=== PATIENT | female | born 1975 | race Caucasian/White ===

== ENCOUNTER 2017-03-24 12:46 | Day surgery (SDC) | payer BC ==
[~2017-03-24] VITALS: Ht 167.6 cm; Wt 60.3 kg
[2017-03-24] MEDS ORDERED: PRILOSEC OTC20 MG PO (13:04)
--- NOTE | 2017-03-24 14:51 | NUR ---
03/24/17 1453 Lamar Mansfield 4974-PATIENT ARRIVED TO PACU ON 2L NC O2 SAT 100% PATIENT LAYING ON LEFT LATERAL SIDE. ABDOMEN SOFT. ENCOURAGED TO PASS FLATUS.
--- NOTE | 2017-04-04 13:40 | OR ---
[facility] [address], [place] [address] Signed DATE OF PROCEDURE: 03/24/17 PREOPERATIVE DIAGNOSES Persistent left lower and left upper abdominal pain. Normal upper endoscopy. Prior left ovarian cyst. POSTOPERATIVE DIAGNOSIS: Essentially normal-appearing colon. PROCEDURE Total colonoscopy to cecum with biopsy of splenic flexure area and rectum. SURGEON: Trina Lee MD. ANESTHESIA: Intravenous sedation with Fentanyl 150 mcg, Versed 6 mg. INDICATION This 42-year-old white woman is a patient of BETTY Juarez, in [place], [place]. Since January 30 or so, she has had left-sided abdominal pain, sometimes it is in the left upper quadrant, sometimes in the left lower aspect. She notes it worsens in relation to her menstrual cycle. A CT scan of the abdomen and pelvis in August of 2016 did show a left ovarian cyst, which was small. She has undergone upper endoscopy showing no significant peptic problems. I am concerned this may represent endometriosis or perhaps episodically problematic left ovarian cyst. Colonoscopy is indicated a t this time to assess for neoplastic disease or other particular left-sided colonic problems. She understands the risks of bleeding, infection, and perforation related to colonoscopy and wished to proceed. FINDINGS The prep was excellent. Complete colonoscopy was undertaken to the cecum. The sigmoid area was somewhat tortuous and challenging to negotiate, but it was accomplished and complete colonoscopy to the cecum was accomplished. The ileocecal valve and appendiceal orifice were identified as normal. Notably, there was a fair amount of liver transilluminated in the region of the cecum, therefore, some questions exist to whether there may be incomplete rotation; however, no such finding was noted on CT scan before, and we will need to relook at that. There is no sign of diverticular formation, colitis, or cancer, however, and the rectum was normal. PROCEDURE The patient brought to the endoscopy suite and placed in lateral decubitus position and given intravenous sedation to the point of slurred speech and nystagmus. Digital rectal examination was normal. Electronically Signed By: TRINA LEE MD 04/04/17 1340 PATIENT NAME: RICK DAILEY OPERATIVE REPORT DATE OF : 75 PHYSICIAN: TRINA LEE MD REPORT #: [id number] REPORT IS CONFIDENTIAL AND NOT TO BE RELEASED WITHOUT AUTHORIZATION [facility] [address], [place] [address] Signed An Olympus video colonoscope was passed in the rectum and manipulated throughout the colon. In the sigmoid area, angulation deformity was significant enough that various maneuvers were unsuccessful for passage of the scope. The scope was removed and a different colonoscope obtained and passage reintroduced. In the same area, it was challenging, but ultimately with special care and various manipulations, the scope was passed the rectosigmoid up into the remaining colon. The scope was passed to the cecum where the bowel prep was noted to be excellent. The appendiceal orifice and ileocecal valve were identified. A fair amount of background hepatic tissue was noted. Scope was withdrawn from the cecum and examination throughout showed no sign of abnormality. There were some stretch briones in the colonic mucosa, no doubt related to air and so forth, but no true colitis or inflammatory problem. Retroflexion in the rectum was normal. Scope was removed and the patient was taken to recovery room in good condition. CONCLUDING DIAGNOSIS No clear evidence of colonoscopic lesion to account for left-sided abdominal pain. PLAN Consideration must be made that this may represent endometriosis or perhaps left ovarian cyst tissue based on the cyclic nature of the problem in relation to her menses. There is certainly no colonic abnormality. Consideration might be made for laparoscopy for diagnosis. She will see me back in 2-4 weeks and we will review her situation and pathology reports. If laparoscopy is needed, consideration will be made for biopsy to assess for endometriosis or left ovarian cyst excision if appropriate. MD CHASE Caldwell/Amadou /[id number] cc: BETTY Juarez [place], [place] Electronically Signed By: TRINA LEE MD 04/04/17 1340 PATIENT NAME: POOJA DAILEYY YANIRA OPERATIVE REPORT DATE OF : 75 PHYSICIAN: TRINA LEE MD REPORT #: [id number] REPORT IS CONFIDENTIAL AND NOT TO BE RELEASED WITHOUT AUTHORIZATION
== END 2017-03-24 16:00 | disposition home or self-care (01) ==
LOC: DS 12:46 → OPS 12:46 → DS 04-14 14:00
PROVIDERS: Surgery
PROC: 0DBP8ZX Excision of Rectum, Via Natural or Artificial Opening Endoscopic, Diagnostic (ICD-10-PCS; 2017-03-24)
PROC: 0DBL8ZX Excision of Transverse Colon, Via Natural or Artificial Opening Endoscopic, Diagnostic (ICD-10-PCS; principal; 2017-03-24 14:00)
DX: R10.32 Left lower quadrant pain (principal); R10.12 Left upper quadrant pain; Z88.0 Allergy status to penicillin; Z88.2 Allergy status to sulfonamides; Z88.5 Allergy status to narcotic agent; Z98.890 Other specified postprocedural states
CPT/HCPCS: 99152; 99153; J2250; J3010; J7120

== ENCOUNTER 2017-09-08 05:35 | Day surgery (SDC) | payer BC ==
[~2017-09-08] VITALS: Ht 167.6 cm; Wt 59.0 kg
[~2017-09-08 05:35] MED LIST: MULTIVITAMINS1 EAC7 PO; PRILOSEC OTC20 MG PO
--- NOTE | 2017-09-08 08:32 | NUR ---
NIVIA 0658 IN TO PT ROOM TO GIVE PREMEDICATIONS ORDERED PER ANETHESIA. PT UP TO BATHROOM WITH LITTLE ASSIST. PT BACK TO BED. DISCUSSED MEDICATIONS AND USES INDIVIDUALLY. PT AND EXPRESS CONCERN REGARDING THE SIDE EFFECTS OF THE SCOPOLAMINE PATCH. DISCUSSED SIDE EFFECTS FURTHER AND ADVISED PT THAT IT IS ACCEPTABLE TO HOLD PLACEMENT OF PATCH AND SPEAK WITH DR. ROSA DASILVA. PT WOULD LIKE TO DISCUSS WITH . SCOPOLAMINE HELD. NO FURTHER NEEDS AT THIS TIME.
--- NOTE | 2017-09-08 08:35 | NUR ---
LE 0739: DR. LEE IN TO SEE PT. RN IN ROOM TO ADMINISTER PREMEDICATIONS. PT AND MD DISCUSSING SCOPOLAMINE PATCH. PER DR. LEE PT IS NOT TO HAVE PATCH PLACED. SCOPOLAMINE PATCH HELD PER .
--- NOTE | 2017-09-08 09:08 | NUR ---
09/08/17 0908 Mónica Yates 0854 PATIENT ARRIVES TO PACU ASLEEP, RESPONDS TO VERBAL STIMULI. MASK AT 8 LITERS. RESP EVEN AND UNLABORED. 0855 PATIENT AWAKE OFF/ON, C/O GENERALIZED ABD DISCOMFORT. 0900 PATIENT OFF MASK, ON ROOM AIR. MEDICATED FOR PAIN. DENIES NAUSEA. PERIPAD APPLIED.
[2017-09-08] MEDS ORDERED: IBUPROFEN600 MG PO (09:16)
[2017-09-08] MEDS ORDERED: MAPAP325 MG PO (09:17)
[2017-09-08] MEDS ORDERED: OXYCODON-ACETA1 EAC2 PO (09:17)
[2017-09-08] MEDS ORDERED: MECLIZINE HCL25 MG PO (09:18)
--- NOTE | 2017-09-08 11:47 | OR ---
[facility] [address], [place] [address] Signed DATE OF OPERATION: 09/08/2017 SURGEON: Trina Lee MD PREOPERATIVE DIAGNOSES: 1. Chronic recurrent left pelvic pain. 2. Known small uterine fibroids. 3. Recurrent left ovarian cyst. POSTOPERATIVE DIAGNOSES: 1. No evidence of endometriosis or Meckel's diverticulum. 2. Uterine fibroids subserosal, right superior fundus of uterus. 3. Left ovarian collapsed cyst with chronic inflammatory change. PROCEDURES: 1. Diagnostic laparoscopy. 2. Left ovary/cyst excision. ANESTHESIA: General endotracheal (Shaylee Sanchez CRNA) and local 10 mL of 0.25% Marcaine with epinephrine. INDICATION: This 42-year-old white woman is from [place], [place] and has had chronic recurrent left pelvic pain. She has been evaluated in the [facility] for this and a CT scan performed there showed a collapsed left ovarian cyst, which was considered relatively small. She has had x2 and D and C in 2011. She has undergone evaluation for this pain by me, which has included colonoscopy and upper endoscopy showing no sign of lesion to account for symptoms. Continued observation over time has shown her to have recurrent left pelvic pain, worse following her menstrual period. Ultrasonographic evaluation has shown a normal size uterine stripe, a "collapsing" 2.5 cm left ovarian cyst. She has never had endometriosis or symptoms of that in the past. A CCK-HIDA test had shown an ejection fraction of 70%, but with some abdominal pain in the left abdomen, though she has no biliary symptoms otherwise. A CT scan was then performed confirming only uterine leiomyoma. No evidence of retroperitoneal pathology. A long period of observation and evaluation has been undertaken. At this point, I have recommended laparoscopy to assess for endometriosis or other pathology that might not have been noted on previous evaluation. Additionally, I have recommended possible left ovarian cystectomy if appropriate. Electronically Signed By: TRINA LEE MD 09/08/17 5450 PATIENT NAME: RICK DAILEY OPERATIVE REPORT DATE OF : 75 REPORT #: [id number] PHYSICIAN: TRINA LEE MD PCP: MICHELL MENDOZA REPORT IS CONFIDENTIAL AND NOT TO BE RELEASED WITHOUT AUTHORIZATION [facility] [address], [place] [address] Signed Close discussion with her and the patient shows them both to be extremely open to any intervention that may improve her symptoms. This includes ovariectomy itself if ovarian cystectomy was not readily able to be performed. She is done with childbearing according to patient and her . The risk of laparoscopy and other interventions have been reviewed with them both including the risks of bleeding, infection, and most importantly failure to find pathology that may be amenable to improvement. They also understand that whatever intervention is undertaken may not fully or even partially improve her symptoms of recurrent episodic left pelvic pain. Understand this, they wished to proceed. FINDINGS: Due to the thin body habitus, good examination was undertaken throughout. As regard to the pelvis, there was no evidence of endometriosis. The left and right tubes appeared normal. The right ovary was normal. The left ovary had an ovarian cyst within the substance of it, which was not amenable to extirpation without ovariectomy and that was performed. There was a uterine fibroid on the fundus of the uterus that was not particularly pedunculated and although consideration was made for excision, I left in situ at this point. The small bowel was run and found to have no evidence of ileitis or inflammatory bowel disease in any way and certainly no evidence of Meckel's diverticulum. Efforts were made to identify the appendix, but it must be retrocecal as it was not able to be identified. The colon itself appeared normal including the sigmoid and right colon. The liver was entirely normal as was the gallbladder and stomach in those area was visualized. By conclusion, complete left ovariectomy with concurrent cyst has been accomplished without known complication. DESCRIPTION OF PROCEDURE: The patient was brought to the operating room, given a general endotracheal anesthetic. Preoperative antibiotic, clindamycin was given intravenously. A bimanual pelvic examination was undertaken showing no abnormality. A Asif catheter was placed with the circulating nurse. The abdomen was prepared with a chlorhexidine solution and draped sterilely. An infraumbilical incision was made and using an open Colette cannula technique, pneumoperitoneum was achieved to a level of 14 mmHg of carbon dioxide gas. Intraabdominal inspection showed no sign of ascites or carcinomatosis. A 5 mm suprapubic port was placed under direct visualization allowing for manipulation of the pelvic organs. The table was tilted head down a bit. The uterus overall looked normal except for a leiomyoma on the fundus of the uterus. It was not pedunculated at this point. The right adnexa showed a normal tube and ovary. There was no evidence of Electronically Signed By: TRINA LEE MD 09/08/17 1147 PATIENT NAME: RICK DAILEY OPERATIVE REPORT DATE OF : 75 REPORT #: [id number] PHYSICIAN: TRINA LEE MD PCP: MICHELL MENDOZA REPORT IS CONFIDENTIAL AND NOT TO BE RELEASED WITHOUT AUTHORIZATION [facility] [address], [place] [address] Signed endometriosis anterior or posterior to the uterus, or the right pelvic organs. Examination on the left side (asymptomatic side) showed a normal tube and reasonably normal appearing ovary except for an involuted cystic lesion within the substance of the ovary. Various manipulation showed it to be otherwise normal. Close inspection showed no evidence of localized endometriosis or other peritoneal abnormality. A 12 mm epigastric port was placed and a camera was placed to that site. With two-hand manipulation, the left adnexa was manipulated into position and close inspection of the ovarian lesion undertaken. Given her chronic recurrent pain and the lesion of the ovary well identified, consideration was made for enucleation of the cyst, however, its substance deep within the substance of the ovary precluded such and undertaken and mindful of her recurrent left pelvic pain. Ovariectomy in continuity with the cyst was deemed most advisable. The surrounding soft tissue was elevated and an Endo IRENE stapling device placed on the lateral aspect of the ovarian tissue and with two loads, it was excised. It was placed in an endobag and extracted through the infraumbilical port site. It was passed for pathology. Inspection of the operative site showed the staple lines to be free of bleeding or other abnormality. Attention was then turned towards the remaining abdomen. The terminal ileum was identified as normal and the small bowel run in a retrograde fashion showing no evidence of Meckel's diverticulum, Crohn's disease or other abnormality. The upper abdomen was inspected and the gallbladder appeared normal as did the liver and both right and left lobes. Reinspection of the pelvis showed no sign of abnormality. The fundic leiomyoma was rather broad-based, though it was subserosal and although I considered excising it, thought better to simply leave it in situ and assess the patient's response to current therapy already performed of the ovariectomy with concurrent cystectomy. Enucleation of the leiomyoma was a consideration, but since the lesion did not have a pedicle or torsion or signs of ischemia, it was considered less likely to be the source for pain problem. The trocars were removed under direct visualization showing no sign of bleeding. The infraumbilical fascial incision was reapproximated with interrupted 0 Vicryl suture. A 10 mL of 0.25% Marcaine with epinephrine was injected locally. The skin was closed with interrupted 3-0 Vicryl. Steri-Strips were applied. The patient was ultimately extubated and transferred to recovery room in good condition having suffered no known complications. Blood loss was minimal. Trina Lee MD Electronically Signed By: TRINA LEE MD 09/08/17 1147 PATIENT NAME: RICK DAILEY OPERATIVE REPORT DATE OF : 75 REPORT #: [id number] PHYSICIAN: TRINA LEE MD PCP: MICHELL MENDOZA REPORT IS CONFIDENTIAL AND NOT TO BE RELEASED WITHOUT AUTHORIZATION [address] [address] Signed CHASE/ROB /[id number] cc: BETTY Maldonado Copies: MICHELL MENDOZA ~ Electronically Signed By: TRINA LEE MD 09/08/17 1147 PATIENT NAME: POOJA DAILEYY YANIRA OPERATIVE REPORT DATE OF : 75 REPORT #: [id number] PHYSICIAN: TRINA LEE MD PCP: MICHELL MENDOZA REPORT IS CONFIDENTIAL AND NOT TO BE RELEASED WITHOUT AUTHORIZATION
--- NOTE | 2017-09-08 12:58 | NUR ---
LE 1145: PT CALLED, ASSISTED UP TO BATHROOM. PT NAUSEATED WHEN CHANGING POSITION, NAUSEA PASSED WITH REST. PT ASSISTED TO BATHROOM STEADY ON FEET. ASSISTED BACK TO BED, MECLIZINE GIVEN TO HELP WITH NAUSEA. PT RATES PAIN 6/10 WHICH IS IMPROVED. DENIES NEED FOR MORE MEDICATION AT THIS TIME, PT WOULD LIKE TO REST. WILL CONTINUE TO MONITOR PT.
--- NOTE | 2017-09-08 13:04 | NUR ---
PT CALLED, SEE JACOBO IN TO CHECK ON PT. PT STATES SHE IS GOING TO ATTEMPT TO GET DRESSED AND SEE HOW SHE FEELS. AT [facility].
--- NOTE | 2017-09-08 13:18 | NUR ---
IN TO CHECK ON PT, PT ATTEMPTING TO DRESS WITH HELP OF . PT C/O NAUSEA UPON STANDING. PT ASSISTED TO SITTING ON BEDSIDE. NAUSEA SUBSIDES, NO EMESIS NOTED. PT ASSISTED BACK TO LAYING IN BED. PT STATES SHE WOULD LIKE TO REST THEN TRY TO GO HOME. PT C/O PAIN INCREASED WITH WRETCHING. OFFERED ZOFAN AND FURTHER PAIN MEDICATION. PT DECLINED SHE IS WORRIED ABOUT "TAKING TOO MUCH STUFF." WILL CONTINUE TO MONITOR PT.
--- NOTE | 2017-09-08 14:09 | NUR ---
IN TO CHECK ON PT, PT SLEEPING. PT DENIES NAUSEA. RATES PAIN 3/10 WHEN LAYING DOWN WITH PAIN INCREASING WITH MOVEMENT. DISCUSSED OPTIONS FOR PAIN MEDICATION. PT HESITANT TO TAKE DILAUDID FOR PAIN SHE IS AFRAID OF HAVING A "REACTION." OFFERED TYLENOL. TYLENOL GIVEN. PT RESTING NO FURTHER NEEDS AT THIS TIME. CALL LIGHT IN REACH.
--- NOTE | 2017-09-08 15:12 | NUR ---
NIVIA 1445: PT CALLED, RN IN TO ROOM. PT STATES THAT SHE WENT TO ADJUST HER HAIR SHE BECAME NAUSEATED AND VOMITED. PT STATING TO "IF WE ARE GOING TO GO HOME, WE ARE JUST GOING TO HOME AND I WILL THROW UP IN THE CAR." PT IS ALSO CONCERNED THAT WHEN SHE VOMITED THE TYLENOL WAS LOST IN EMESIS. PT ALSO NOTING A "NUMBNESS IN MY FACE AND NOSE. LIKE I HAD DENTAL WORK DONE." ADVISED PT THAT I WOULD DISCUSS SYMPTOMS WITH STUDENT ASSISTANT AND MD. CONSULTED WITH OR CHARGE NURSE. WAITING TO SPEAK WITH MD.
--- NOTE | 2017-09-08 15:17 | NUR ---
LE 1500: SPOKE WITH DR. LEE, ADVISED OF ISSUES WITH FACIAL MUMBNESS, NAUSEA AND PAIN CONTROL. ALSO DISCUSSED PT'S CONCERNS WITH TAKING DILAUDID AT HOME. PER DR. LEE GIVEN ULTRAM 50 MG, 1 PO NOW AND MONITOR FACIAL NUMBNESS. MD TO CONSIDER ADMITTING PT OVERNIGHT IF NEEDED IF NAUSEA CONTINUES. DISCUSSED PLAN WITH PT AND . PLAN TO ADMINISTER ZOFRAN AND ULTRAM, PT AGREES.
--- NOTE | 2017-09-08 16:50 | NUR ---
IN TO CHECK ON PT, PT AWAKE. PT STATES THAT HER FACIAL NUMBNESS HAS RESOLVED. DENIES NAUSEA AT THIS TIME. REQUEST YAS ZAMORA, GIVEN. PT SL AT THIS TIME. WILL CONTINUE TO MONITOR PT.
--- NOTE | 2017-09-08 17:45 | NUR ---
LE 1515: IN TO CHECK ON PT, PT AWAKE. DENIES NAUSEA. RATES PAIN A 4-5/10, PT STATES HER PAIN IS TOLERABLE AT THIS TIME. PT ASSISTED TO BATHROOM. TOLERATED WELL. VOIDED 300. DENIES NAUSEA WITH MOVEMENT. PT STATES SHE IS READY FOR DISCHARGE. IV DC'D. DICHARGE INSTRUCTIONS GIVEN. PT DECLINES DILAUDID SCRIPT, SCRIPT SCHREDDED. PT STATES SHE WILL TAKE IBU FOR PAIN AND WILL CONNACT MD IF NEEDED. PT WHEELED OUT OF UNIT TO CAR, TOLERATED WELL.
== END 2017-09-08 17:35 | disposition home or self-care (01) ==
LOC: DS 05:35
PROVIDERS: Surgery
PROC: 0UT14ZZ Resection of Left Ovary, Percutaneous Endoscopic Approach (ICD-10-PCS; principal; 2017-09-08 06:45)
DX: N83.12 Corpus luteum cyst of left ovary (principal); N83.02 Follicular cyst of left ovary; D25.2 Subserosal leiomyoma of uterus; Z88.0 Allergy status to penicillin; Z88.5 Allergy status to narcotic agent; Z88.2 Allergy status to sulfonamides; Z98.890 Other specified postprocedural states; Z79.899 Other long term (current) drug therapy
CPT/HCPCS: 00840; J0330; J1100; J1170; J1644; J1885; J2250; J2405; J2550; J2704; J2765; J3010